=== PATIENT | male | born 1985 | race Caucasian/White ===

== ENCOUNTER 2020-07-11 23:45 | Emergency (ER) | payer SELFPAY ==
[2020-07-11 23:51] VITALS: BP 122/77; BP 124/90; PULSE 102; PULSE 103; RESP 16; TEMP 36.6; O2SAT 95; O2SAT 96; BMI 29.7
--- NOTE | 2020-07-12 00:01 | CT_ITS ---
EXAMINATION: CT HEAD WITHOUT CONTRAST CLINICAL INFORMATION: Closed head injury COMPARISON: None TECHNIQUE: Contiguous axial imaging was performed from the skull base to vertex without intravenous administration of contrast. This CT examination was performed using dose optimization techniques as appropriate, variously including the following: *Automated exposure control *Adjustment of mA and/or kV according to patient size (this includes techniques or standardized protocols for targeted exams where dose is matched to indication/reason for exam; i.e. extremities or head) *Use of iterative reconstruction technique DLP: 722 mGy-cm FINDINGS: There is no evidence of acute intracranial hemorrhage or territorial infarction. No abnormal mass effect or midline shift is seen. Krishnamurthy to white matter differentiation is well preserved. No extra-axial fluid collections are identified. The ventricles are normal in size. There is no abnormal attenuation within the brain parenchyma. Left lateral periorbital soft tissue swelling. The mastoid air cells and visualized portions of the paranasal sinuses are well aerated. CT/CT head/brain wo con IMPRESSION: No acute intracranial pathology.
--- NOTE | 2020-07-12 00:01 | XR_ITS ---
EXAMINATION: XR HAND, RIGHT CLINICAL INFORMATION: Closed head injury COMPARISON: None TECHNIQUE: PA, lateral, and oblique views of the right hand. FINDINGS: No acute fracture or dislocation. There is soft tissue swelling dorsal to the fifth metacarpal. No radiopaque foreign body. XR/XR hand RT 2V IMPRESSION: No acute fracture or dislocation. Soft tissue swelling dorsal to the fifth metacarpal
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
[2020-07-12] MEDS: Lidocaine HCl 2 % MPF 5 ML VIAL INFILTRATI (00:32)
== END 2020-07-12 01:45 | disposition home or self-care (01) ==
PROVIDERS: Emergency Provider Internal Medicine
DX: S01.112A Laceration without foreign body of left eyelid and periocular area, initial encounter (principal); H57.12 Ocular pain, left eye; S09.90XA Unspecified injury of head, initial encounter; Y33.XXXA Other specified events, undetermined intent, initial encounter; Y93.9 Activity, unspecified; Y92.9 Unspecified place or not applicable; Y99.9 Unspecified external cause status
CPT/HCPCS: 12013; 70450; 73120; 99283; 99284

== ENCOUNTER 2020-07-16 06:56 | Emergency (ER) | payer SELFPAY ==
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
[2020-07-16 07:12] VITALS: BP 132/83; PULSE 115; RESP 20; TEMP 36.7; O2SAT 95; BMI 27.3
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
[2020-07-16 08:43] VITALS: PULSE 95; RESP 18
== END 2020-07-16 09:09 | disposition home or self-care (01) ==
PROVIDERS: Emergency Provider Emergency Medicine
DX: S01.112D Laceration without foreign body of left eyelid and periocular area, subsequent encounter (principal); S05.12XD Contusion of eyeball and orbital tissues, left eye, subsequent encounter; Y04.2XXD Assault by strike against or bumped into by another person, subsequent encounter
CPT/HCPCS: 70486; 99284

== ENCOUNTER 2021-03-03 12:34 | Emergency (ER) | payer SELFPAY ==
--- NOTE | ~2021-03-03 | CT_ITS ---
EXAMINATION: CT HAND WITHOUT CONTRAST, RIGHT CLINICAL INFORMATION: Characterize fracture right hand and wrist. COMPARISON: Radiographs right hand and wrist 03/03/2021. TECHNIQUE: CT right hand and wrist there is performed in the axial short axis plane without contrast. Additional 2-D multiplanar reformatted images are generated on the CT workstation and uploaded to PACS. This CT examination was performed using dose optimization techniques as appropriate, variously including the following: *Automated exposure control *Adjustment of mA and/or kV according to patient size (this includes techniques or standardized protocols for targeted exams where dose is matched to indication/reason for exam; i.e. extremities or head) *Use of iterative reconstruction technique DLP: 125 mGy-cm FINDINGS: There is a comminuted fracture involving the dorsal side of the hamate with a predominantly horizontal fracture line extending to the articular surface. Fracture fragment is distracted dorsally by 3.7 mm. There is also a comminuted fracture involving th fourth metacarpal extending to the articular surface with both longitudinal oblique components. The fourth metacarpal base is subluxed dorsally. There is a questionable punctate cortical avulsion from palmar base fifth metacarpal. Fifth metacarpal is subluxed dorsally. The remainder of the bony structures appear intact. The distal radius and ulnar and proximal carpal row are unremarkable. The capitate and greater and lesser multangular carpal bones are intact. The remainder of the metacarpals and the digits are unremarkable. CT/CT hand RT wo con IMPRESSION: 1. Comminuted fracture dorsal hamate. 2. Comminuted fracture base fourth metacarpal with mild dorsal subluxation. 3. Question punctate cortical avulsion, base fifth metacarpal with mild dorsal subluxation.
--- NOTE | ~2021-03-03 | XR_ITS ---
EXAMINATION: XR HAND WRIST, RIGHT CLINICAL INFORMATION: Trauma, pain medial hand COMPARISON: None TECHNIQUE: 3 views of the combined hand and wrist are obtained in large [id number] images. A navicular view of the wrist is also included for a total of 4 views. FINDINGS: The lateral view demonstrates a triangular acute fracture fragment dorsal side of distal wrist measuring 1.3 x 0.5 cm. Fracture fragment is not clearly seen on the other views. It may reside from the hamate. In addition, the base of the fourth metacarpal appears expanded with questionable fracture line on the oblique view. There may be dorsal subluxation at the carpal metacarpal joint. The remainder the bony structures appear intact. The ulnar variance is neutral. The digits are unremarkable. XR/XR hand wrist RT IMPRESSION: Fracture fragment dorsal carpus 1.3 x 0.5 cm, possibly involving hamate and/or base of fourth metacarpal. There may be subluxation at the CMC joint. CT noncontrast would be helpful for further characterize.
[2021-03-03 13:01] VITALS: BP 119/76; PULSE 90; RESP 20; TEMP 35.9; O2SAT 97; BMI 55.3
[2021-03-03] MEDS: Ibuprofen 600 MG TABLET PO (13:11)
--- NOTE | 2021-03-03 14:53 | ED.EXTPRO ---
HPI - Extremity Problem General Chief complaint: Extremity Injury, Upper Stated complaint: rt hand swollen fell Time Seen by Provider: 03/03/21 14:08 History of Present Illness HPI Narrative: Patient complains of right hand pain after a fall off a ladder yesterday at home, he did hit his head or neck, he has no other pain except right hand pain no numbness weakness or tingling Related Data Previous Rx's Medication Instructions Recorded ibuprofen 600 mg tablet 600 mg PO Q6H PRN #20 tab 03/03/21 oxycodone-acetaminophen 5 mg-325 1 - 2 tab PO Q6H PRN #30 tab 03/09/21 mg tablet Allergies Allergy/AdvReac Type Severity Reaction Status Date / Time No Known Allergies Allergy Verified 03/08/21 10:45 [No Known Allergies*] Review of Systems Review of Systems: Positive for right hand pain after a fall Negatives are no dizziness no weakness no fainting no feeling faint no headache no head injury no neck pain no numbness weakness or tingling no other extremity injury no back pain Yes all other systems are reviewed and are negative PMFSH Past Medical History Source: nursing notes reviewed Medical History No known health problems Social History Social History (Updated 03/08/21 @ 10:46 by [place]ia Rice) Patient Tobacco Use Status: Current everyday Tobacco user Tobacco use type: Cigarette Current occupational status: employed 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 Physical Exam Vital Signs: Vital Signs: Last Vital Signs Temp 96.7 F L 03/03/21 13:01 Pulse 90 03/03/21 13:01 Resp 16 03/03/21 15:09 BP 119/76 03/03/21 13:01 Pulse Ox 97 03/03/21 13:01 Body Mass Index 55.3 General appearance no acute distress Head is normocephalic atraumatic Neck is supple and nontender The respiratory no acute distress Chest wall no tenderness The back has full range of motion, no spinal tenderness The extremities the right hand and wrist are swollen mostly around the ulnar aspect of the wrist it is neurovascular intact distal Other extremities normal Neuro no focal motor sensory deficit Course Course Course Narrative: X-ray showed carpal bone fracture possibly the hamate, possible subluxation of the CMC joint probable fracture of the 4th metacarpal The case was discussed with orthopedic physician music library assistant deborah who recommended ulnar gutter splint, get a CT scan for later use in the office to determine possible surgical treatment, and she confirmed the patient would be seen within several days in the office Ulnar gutter splint is placed, neurovascular intact afterwards and patient is discharged to follow with orthopedics Discharge Plan Discharge Clinical Impression: Hand fracture, right Patient Disposition: Home, Self-Care Additional Instructions: X-ray showed fractures of the right hand I contacted the orthopedic physician music library assistant mark cabrera who said you need to be seen next week so call them today to make an appointment for next week Return any time any worse condition or any concerns Prescriptions: New ibuprofen 600 mg tablet 600 mg PO Q6H PRN (Reason: pain) Qty: 20 RF: 0 No Action oxycodone-acetaminophen 5-325 mg tablet 1 - 2 tab PO Q6H PRN (Reason: pain) Qty: 30 RF: 0 Referrals: Kyara Cabrera PA-C [Physician Sample Collector] - 2 days (Right hand fracture) Ran Valenzuela MD [Physician] - 2 days (Right hand fracture) Stand Alone Forms: Work/School Release Interventions: ED Discharge Assessment Last Done: 03/03/21 15:29 Discharge Date/Time: 03/03/21 15:29
--- NOTE | 2021-03-03 14:59 | PC.NURSE ---
MODERATE SWELLING WITH SML OPEN LAC ON RIGHT HAND. DENIES HEAD/NECK INJ DURING FALL FROM LADDER. LIMITED ROM OF RIGHT WRIST. GOOD COLOR AND SENSATION OF FINGERS.
[2021-03-03 15:09] VITALS: RESP 16
[2021-03-03] MEDS: Diphth,Pertus(ACell),Tet Adult 0.5 ML SYRINGE IM (15:10)
== END 2021-03-03 15:29 | disposition home or self-care (01) ==
PROVIDERS: Emergency Provider Emergency Medicine
DX: S62.141A Displaced fracture of body of hamate [unciform] bone, right wrist, initial encounter for closed fracture (principal); S62.314A Displaced fracture of base of fourth metacarpal bone, right hand, initial encounter for closed fracture; S62.316A Displaced fracture of base of fifth metacarpal bone, right hand, initial encounter for closed fracture; S61.411A Laceration without foreign body of right hand, initial encounter; W11.XXXA Fall on and from ladder, initial encounter; Y93.H9 Activity, other involving exterior property and land maintenance, building and construction; Y92.017 Garden or yard in single-family (private) house as the place of occurrence of the external cause; Y99.9 Unspecified external cause status
CPT/HCPCS: 29125; 73110; 73130; 73200; 90471; 90715; 99283; 99284

== ENCOUNTER → 2021-03-08 10:16 | Outpatient (BNVA) | payer SELFPAY | PROVIDERS: Visit Provider Orthopaedic Surgery | DX: S62.314A Displaced fracture of base of fourth metacarpal bone, right hand, initial encounter for closed fracture (principal); S62.141A Displaced fracture of body of hamate [unciform] bone, right wrist, initial encounter for closed fracture; S63.054A Dislocation of other carpometacarpal joint of right hand, initial encounter | CPT/HCPCS: 99202 ==

== ENCOUNTER 2021-03-09 11:23 | Day surgery (SDC) | payer SELFPAY ==
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
[2021-03-09] VITALS (11 sets, daily range): BP systolic 112–126; BP diastolic 72–84; PULSE 74–104; RESP 16–18; TEMP 36.7; O2SAT 93–100; BMI 25.1
--- NOTE | ~2021-03-09 | FL_ITS ---
EXAMINATION: XR FLUOROSCOPY WITH IMAGES CLINICAL INFORMATION: Fractures hamate and base fourth metacarpal COMPARISON: Radiographs right hand and CT right hand 03/03/2021 TECHNIQUE: Fluoroscopy performed by Dr. Key Tolentino. Fluoroscopy time: 2.1 minutes DAP: 67.669 mGycm2 Images: 4 FINDINGS: Fracture is not been reduced with 3 metallic pins. Fracture fragments are in near-anatomic alignment. No dislocation. Hardware intact. FL/FL guidance in OR IMPRESSION: Status post open reduction internal fixation fractures.
[2021-03-09] MEDS: Lactated Ringers 1,000 ML 100 ML IVCONT (12:13)
--- NOTE | 2021-03-09 14:39 | P.OP_ITS ---
Operative Note Operative Note Date of Service: 03/09/21 Narrative: Operative Note Narrative: Preop diagnosis: 1. Right 4th metacarpal base fracture 2. Right 4th carpometacarpal joint dorsal dislocation 3. Right hamate body fracture with displacement 4. Right 5th carpometacarpal joint dorsal dislocation Postop diagnosis: Same Procedure: 1. Closed reduction percutaneous pinning right 4th metacarpal base fracture 2. Closed reduction percutaneous pinning right 4th carpometacarpal joint dorsal dislocation 3. Closed reduction percutaneous pinning right 5th carpometacarpal joint dorsal dislocation, and hamate body fracture 4. Right ulnar nerve block Surgeon: Key Tolentino MD Anesthesia: General Findings: Right 4th and 5th carpal metacarpal dorsal fracture dislocations involving fractures of the 4th metacarpal base and the hamate body. Successful closed reduction percutaneous pinning Implants: 0.062 K-wires x3 Tourniquet time: 0 minutes EBL: 5.0 ml Specimen: None Drains: None Complications: None Disposition: Brought to the recovery room in stable condition Plan: Follow-up in 10-14 days for wound check, and postop radiographs Indications: The patient is 36 years old with a right 4th and 5th carpometacarpal joint dorsal fracture dislocation with fractures of the 4th metacarpal base and the hamate body. . The risks and benefits of operative treatment, including but not limited to risk of damage to blood vessels, nerves, tendons, infection, recurrence, persistent pain or numbness, incomplete resolution of preoperative symptoms, or need for further surgery were discussed with the patient and they wished to proceed with surgery. Procedure: Once consent was obtained patient was brought back to the operating suite and placed in the operating table in a supine position. . Perioperative antibiotics and anesthesia was administered by the anesthesia team. A tourniquet was applied to the proximal aspect of the right upper extremity and the limb was prepped and draped in a standard surgical fashion. The tourniquet was not inflated during the case. The FluoroScan was used throughout the case to assess our reductions and placement of all implants. A closed reduction of our 4th and 5th carpometacarpal joint dorsal dislocations with fractures of the 4th metacarpal base and the hamate body was performed. I was happy with our initial reduction. I then passed a 0.062 K-wire obliquely through the ulnar base of the 5th metacarpal across the 5th CMC joint into the body of the hamate. I was happy with our reduction and placement of this K-wire. While applying some gentle traction to the 4th metacarpal to facilitate the reduction of the fracture of the base of the 4th metacarpalI then passed a 2nd 0.062 K-wire through the proximal ulnar shaft of the 5th metacarpal and advanced this transversely throug h the base of the 4th metacarpal and into the base of the 3rd metacarpal. I was again happy with this reduction and placement of the 2nd K-wire. I then passed a 3rd K-wire obliquely through the ulnar proximal aspect of the 5th metacarpal across the 4/5 CMC joint and into the capitate. I was happy with our reduction and placement of all implants on multiple fluoroscopic images. The K-wires were then bent cut short and had pin caps applied. And ulnar nerve block was then performed by infiltrating about the ulnar nerve at the wrist with some 1% lidocaine with epinephrine for postop pain control. At this point the tourniquet was deflated and hemostasis obtained with a brief period of local pressure. A sterile dressing and a volar splint was then applied. The patient appears to have tolerated the procedure well and with no complications. All digits were well vascularized conclusion of the case.
[2021-03-09] MEDS: fentaNYL citrate/PF 100 MCG/2 ML VIAL 25 MCG IVPUSH ×4 (14:43→15:03)
[2021-03-09] MEDS: oxyCODONE HCl Immed Release 5 MG TABLET 10 MG PO (14:44)
== END 2021-03-09 16:08 | disposition home or self-care (01) ==
PROVIDERS: Visit Provider Orthopaedic Surgery
PROC: (CPT 26608; principal; 2021-03-09 13:00)
DX: S62.141A Displaced fracture of body of hamate [unciform] bone, right wrist, initial encounter for closed fracture (principal); S62.314A Displaced fracture of base of fourth metacarpal bone, right hand, initial encounter for closed fracture; S63.054A Dislocation of other carpometacarpal joint of right hand, initial encounter; W11.XXXA Fall on and from ladder, initial encounter; Y93.9 Activity, unspecified; Y92.9 Unspecified place or not applicable; Y99.8 Other external cause status
CPT/HCPCS: 26608 ×2; 25635; 26676; J0330; J0690; J1100; J2250; J2370; J2405; J3010

== ENCOUNTER 2021-03-15 08:36 | Outpatient (REF) | payer SELFPAY | END 2021-03-15 08:37 | disposition home or self-care (01) | LOC: HO.HOSX 08:36 | PROVIDERS: Visit Provider Orthopaedic Surgery | DX: Z13.89 Encounter for screening for other disorder (principal) ==

== ENCOUNTER 2021-03-20 09:58 | Outpatient (REF) | payer SELFPAY ==
--- NOTE | ~2021-03-20 | XR_ITS ---
EXAMINATION: XR HAND, RIGHT CLINICAL INFORMATION: Right hand pain. COMPARISON: Multiple priors, most recent right hand CT dated 03/03/2021. TECHNIQUE: PA, lateral, and oblique views of the right hand. FINDINGS: Orthopedic pins across the base of the 3rd, 4th, and 5th metacarpals as well as across the 4th and 5th carpometacarpal joints. Previously seen fractures appear in near-anatomic alignment. Evaluation of osseous bridging limited on plain radiographs. No hardware fracture. No perihardware lucency to suggest loosening or infection. No abnormal soft tissue calcification. XR/XR hand RT min 3V IMPRESSION: Orthopedic pins associated with the 3rd, 4th, and 5th metacarpals as well as across the 4th and 5th carpometacarpal joints. No evidence of hardware complication. Previously seen fractures appear in near-anatomic alignment.
== END 2021-03-20 09:59 | disposition home or self-care (01) ==
LOC: HO.HOSX 09:58
PROVIDERS: Visit Provider Orthopaedic Surgery
DX: S62.314D Displaced fracture of base of fourth metacarpal bone, right hand, subsequent encounter for fracture with routine healing (principal); S62.141D Displaced fracture of body of hamate [unciform] bone, right wrist, subsequent encounter for fracture with routine healing
CPT/HCPCS: 73130; 99212

== ENCOUNTER 2021-04-17 10:43 | Outpatient (REF) | payer SELFPAY ==
--- NOTE | ~2021-04-17 | XR_ITS ---
EXAMINATION: XR HAND, RIGHT CLINICAL INFORMATION: Pain COMPARISON: Right hand radiographs March 20, 2021 TECHNIQUE: PA, lateral, and oblique views of the right hand. XR/XR hand RT min 3V FINDINGS/IMPRESSION: Stable positioning/orientation of orthopedic pins. Fracture line through the base of the fourth metacarpal again noted with associated callus formation. No significant degenerative changes of the right hand. No focal soft tissue swelling.
== END 2021-04-17 10:44 | disposition home or self-care (01) ==
LOC: HO.HOSX 10:43
PROVIDERS: Visit Provider Orthopaedic Surgery
DX: S63.054D Dislocation of other carpometacarpal joint of right hand, subsequent encounter (principal); S62.141D Displaced fracture of body of hamate [unciform] bone, right wrist, subsequent encounter for fracture with routine healing; S62.314D Displaced fracture of base of fourth metacarpal bone, right hand, subsequent encounter for fracture with routine healing
CPT/HCPCS: 73130; 99212

== ENCOUNTER 2021-05-24 08:05 | Outpatient (REF) | payer SELFPAY | END 2021-05-24 08:06 | disposition home or self-care (01) | LOC: HO.HOSX 08:05 | PROVIDERS: Visit Provider Orthopaedic Surgery | DX: Z13.89 Encounter for screening for other disorder (principal) ==